=== PATIENT | female | born 1970 | race Caucasian/White ===

== ENCOUNTER 2020-01-01 08:06 | Emergency (ER) | payer BC, OTHER ==
[~2020-01-01] VITALS: Ht 165.1 cm; Wt 121.4 kg
[~2020-01-01 08:06] MED LIST: AMOX1TAB61 PO; BIOTIN; D3; ESCI20TA10 PO; FISH OIL; MULTIVITAMIN; OXYC-306 PO
[2020-01-01 08:10] VITALS: BP 168/77
--- NOTE | 2020-01-01 08:27 | NUR ---
FIRST CONTACT WITH PT. PT C/O RIGHT EAR SWOLLEN AND PAIN X 7 DAYS. STATED FEELS LIKE WATER IS IN EAR. PAIN IS RADIATING DOWN NECK UNDER EAR. PT STATED PAIN HAS BEEN INTENSIFYING SINCE THIS WEEKEND. PT'S AOX4. RESPS EVEN AND UNLABORED.
--- NOTE | 2020-01-01 09:40 | NUR ---
Patient given discharge instructions and they have confirmed that they understand the instructions. Patient ambulatory with steady gait.
== END 2020-01-01 09:41 | disposition home or self-care (01) ==
LOC: ED 09:35
DX: H60.311 Diffuse otitis externa, right ear (principal); F17.200 Nicotine dependence, unspecified, uncomplicated
CPT/HCPCS: 99283